=== PATIENT | female | born 1940 | race Caucasian/White ===

== ENCOUNTER → 2017-03-09 | Outpatient (CLI) | payer MEDICARE, OTHER ==
[~2017-03-09] MED LIST: ASPIRIN E.C. 8181 MG PO; COZAAR100 MG PO; FISH OIL 1000MG1 CAP PO; GLUCOPHAGE500 MG/TAB PO; LOZOL1.25 MG PO; NORVASC 5MG5 MG/TAB PO; PRAVACHOL 40MG40 MG PO
== END ==
LOC: MC.RAD 15:53
DX: Z12.31 Encounter for screening mammogram for malignant neoplasm of breast (principal)

== ENCOUNTER → 2021-10-01 | Outpatient (CLI) | payer MEDICARE, OTHER | LOC: COL.RAD 10:22 | DX: K44.9 Diaphragmatic hernia without obstruction or gangrene (principal) ==